=== PATIENT | male | born 1950 | race Caucasian/White ===

== ENCOUNTER 2018-09-24 07:31 | Day surgery (SDC) | payer OTHER ==
[2018-09-23 14:40] LABS: Absolute Lymphocytes (CBC) 1.2 K/uL (0.7-4.9); Absolute Monocytes 0.8 K/uL (0.1-1.3); Basophils % 0.4 % (0-1.3); Eosinophils % 5.3 % (0-4.4); Hematocrit 36.9 % (39.6-49.0); Lymphocytes % 22.4 % (15.3-44.8); MPV 8.2 fL (7.6-11.3); Monocytes % 15.6 % (3.3-12.3); RBC Red Blood Cell Count 4.37 M/uL (4.33-5.43)
[2018-09-23 14:43] LABS: Protime INR 1.27
--- NOTE | 2018-09-23 14:51 | RAD REPORT ---
EXAM DESCRIPTION: Ann-Marie Aguirre And Mariza (2 Views)09/23/2018 2:39 pm CLINICAL HISTORY: Preop COMPARISON: September 2017 FINDINGS: Lungs are mildly hyperaerated. The lungs appear clear of acute infiltrate. The heart is normal size IMPRESSION: No acute abnormalities displayed
[2018-09-23 14:56] LABS: BUN Blood Urea Nitrogen 8 mg/dL (7-18); Bicarbonate 28 mmol/L (21-32); Glucose Level 115 mg/dL (74-106); Potassium 4.3 mmol/L (3.5-5.1); Sodium Level 135 mmol/L (136-145)
[2018-09-24] MEDS ORDERED: NA CHLORIDE 0.9% 500 ML ONE (08:11)
[2018-09-24] MEDS ORDERED: MIDAZOLAM HCL 2 MG/2 ML INJ ONE ×2 (09:43→10:22)
[2018-09-24] MEDS ORDERED: HEPARIN 5000 UNIT/ML 1 ML VIAL ONE (09:43)
[2018-09-24] MEDS ORDERED: HEPA 1000U/500MLS 2,000 UNIT/1,000 ML BAG IV ONE (09:43)
[2018-09-24] MEDS ORDERED: FENTANYL CITR 100 MCG/2 ML ONE (09:43)
[2018-09-24] MEDS ORDERED: NICARDIPINE HCL 25 MG/10 ML IV ONE (09:43)
[2018-09-24] MEDS ORDERED: NITROGLYCERIN 100 MCG/ML SYR (for cath lab use only) IV ONE (09:43)
[2018-09-24] MEDS ORDERED: ATROPINE SULF 1 MG/10 ML SYR IV ONE (09:44)
[2018-09-24 12:19] VITALS: O2SAT 95
[2018-09-24 13:35] VITALS: TEMP 97.2
[2018-09-24 13:37] VITALS: BP 120/61
--- NOTE | 2018-09-24 21:58 | OP ---
Surgeon: Enrico Huitron MD Procedure: Abdominal aortic angiogram with runoffs. Procedure Findings: The patient has severe right renal artery stenosis. 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 The common iliac has 50% stenosis with thrombus. The right superficial femoral a rtery is occluded distally. On the left, the common iliac is stenotic with thrombotic material proxi fiorella. The external iliac and common femoral have a stent with in-stent stenosis of about 40%, and t here is moderate disease in the superficial femoral on the left, but is not totally occluded or steno tic above 70%. Procedure In Detail: The patient was brought to the cardiac catheterization lab in a fasting state, prepared and draped in usual sterile fashion, sedated with Versed and fentanyl. Right radial approac h was used. We anesthetized the artery tissues with 1% lidocaine, entered the artery with a 21-gauge needle, cannulated it with a 0.021-inch diameter guidewire, placed a 6-[place] Terumo sheath, flushed it, and gave a radial cocktail consisting of nicardipine, heparin, and nitroglycerin. We guided a p igtail catheter into the ascending aorta. It would not easily go into the descending. So, we left t he wire in place and used first a JR4 catheter and then a left internal mammary artery catheter and a Wholey wire to get over the arch down the descending aorta. After that, we were able to guide the p igtail catheter into the descending aorta just above the renal arteries. We did a single injection o f 80 cc of contrast over 4 seconds, and we were able to get all the angiographic information from 1 i njection. We withdrew the pigtail catheter over a wire, flushed the sheath, removed it, and we close d the arteriotomy with a TR Band. Complications During The Procedure: None. Estimated Blood Loss: 20 cc. LISET/MEME Voice ID: [id number] Report ID: [id number]
== END 2018-09-24 12:30 | disposition home health service (06) ==
LOC: CCL 07:31
PROVIDERS: ATTEND Internal Medicine
PROC: B40DYZZ Plain Radiography of Aorta and Bilateral Lower Extremity Arteries using Other Contrast (ICD-10-PCS; principal; 2018-09-24)
DX: I70.213 Atherosclerosis of native arteries of extremities with intermittent claudication, bilateral legs (principal); I70.92 Chronic total occlusion of artery of the extremities; I25.10 Atherosclerotic heart disease of native coronary artery without angina pectoris; I10 Essential (primary) hypertension; E78.5 Hyperlipidemia, unspecified; J44.9 Chronic obstructive pulmonary disease, unspecified; F17.210 Nicotine dependence, cigarettes, uncomplicated
CPT/HCPCS: 36200; 36415; 71046; 80048; 85025; 85610; 85730; C1887; C1893; J1644; J2250; J3010